=== PATIENT | male | born 1975 | race American Indian/Alaskan Native ===

== ENCOUNTER 2016-09-08 17:37 | Emergency (ER) | payer OTHER ==
--- NOTE | 2016-09-08 18:06 | C.PDOC ---
History Of Present Illness 40 y/o male presents to ED with c/o upper respiratory congestion and sore throat that started last week. Patient saw Dr. Holland 2 days ago and had a fever of 101.7. Patient reports he then developed discomfort in left chest and back. Denies abdominal pain, vomiting, diarrhea, cough, or shortness of breath. Patient has been taking Zithromax for 3 days, as prescribed by Dr. Holland, and reports he has since been feeling worse with more pain and higher fever. Time Seen by Provider: 09/08/16 17:57 Chief Complaint (Nursing): Fever History Per: Patient History/Exam Limitations: no limitations Onset/Duration Of Symptoms: Days Current Symptoms Are (Timing): Still Present Sick Contacts (Context): None Associated Symptoms: Fever, Sore Throat, Nasal Congestion. denies: Chills, Cough, Vomiting Ear Symptoms: Bilateral: None Recent travel outside of the [place]: No Past Medical History Reviewed: Historical Data, Nursing Documentation, Vital Signs Vital Signs: Last Vital Signs Temp 103 F H 09/08/16 18:16 Pulse 116 H 09/08/16 17:46 Resp 20 09/08/16 17:46 BP 125/67 09/08/16 17:46 Pulse Ox 97 09/08/16 18:06 - Medical History PMH: No Chronic Diseases Family History: States: Unknown Family Hx - Social History Hx Alcohol Use: Yes Hx Substance Use: No - Immunization History Hx Tetanus Toxoid Vaccination: No Hx Influenza Vaccination: Yes (2016) Hx Pneumococcal Vaccination: No Review Of Systems Except As Marked, All Systems Reviewed And Found Negative. Constitutional: Positive for: Fever ENT: Positive for: Throat Pain. Negative for: Ear Pain Cardiovascular: Negative for: Palpitations Respiratory: Negative for: Cough, Shortness of Breath, Wheezing Gastrointestinal: Negative for: Nausea, Vomiting, Abdominal Pain Skin: Negative for: Rash Neurological: Negative for: Headache, Dizziness Physical Exam - Physical Exam Appears: Non-toxic, No Acute Distress Skin: Normal Color, Warm, Dry Head: Atraumatic, Normacephalic Eye(s): bilateral: Normal Inspection, PERRL, EOMI Ear(s): Bilateral: Normal Nose: Normal Oral Mucosa: Moist Throat: Normal, No Erythema, No Exudate Neck: Normal ROM, Supple Chest: Symmetrical Cardiovascular: Rhythm Regular Respiratory: Normal Breath Sounds, No Rales, No Rhonchi, No Wheezing Gastrointestinal/Abdominal: Soft, No Tenderness, No Guarding, No Rebound Back: Normal Inspection Extremity: Normal ROM, Capillary Refill (< 2 sec.) Extremity: Bilateral: Normal Color And Temperature Neurological/Psych: Oriented x3, Normal Speech, Normal Cognition ED Course And Treatment - Laboratory Results Result Diagrams: 09/08/16 18:22 09/08/16 18:22 Lab Interpretation: Abnormal (Elevated BUN 24, Elevated LFTs with AST 160, ALT 96, Bili 1.5, Alk Phos 162, D-dimer slightly elevated 376) O2 Sat by Pulse Oximetry: 97 (RA) Pulse Ox Interpretation: Normal - Radiology CXR: Interpreted by Me CXR Interpretation: Yes: Infiltrates (RLL) Progress Note: Treated with Tylenol. CxR, labs ordered and reviewed. - Physician Consult Information Time Consulting Physician Contacted: 19:15 Physician Contacted: Stoney Holland Outcome Of Conversation: He knows the patient well. He has already called a prescription for Augmentin 875mg BID to the pharmacy for patient. Rocephin 1gm given in ED. He remains comfortable and is in no distress. He can follow up with Dr Holland in the office. Disposition Counseled Patient/Family Regarding: Studies Performed, Diagnosis, Need For Followup - Disposition Referrals: Stoney Holland MD [Staff Provider] - Disposition: HOME/ ROUTINE Disposition Time: 20:05 Condition: STABLE Additional Instructions: Follow up with Dr Holland in the office. He has called a prescription for Augmentin 875mg in to your pharmacy. Take it twice a day. Complete the Zithromax as prescribed. Instructions: Bacterial Pneumonia (ED) - Clinical Impression Clinical Impression: Pneumonia - Scribe Statement The provider has reviewed the documentation as recorded by the Patrick Miranda Provider Attestation: All medical record entries made by the Patrick were at my direction and personally dictated by me. I have reviewed the chart and agree that the record accurately reflects my personal performance of the history, physical exam, medical decision making, and the department course for this patient. I have also personally directed, reviewed, and agree with the discharge instructions and disposition.
[2016-09-08 18:25] LABS: BASO # 0.1 K/uL (0.0-0.2); BASO % 0.6 % (0.0-2.0); HEMOGLOBIN 13.1 g/dL (12.0-18.0); LYMPH # 1.3 K/uL (1.0-4.3); LYMPH % 12.8 % (20.0-40.0); MEAN CELL VOLUME 95.1 fL (80.0-94.0); MEAN CORPUSCULAR HEMOGLOBIN 32.3 pg (27.0-31.0); MEAN CORPUSCULAR HGB CONC 33.9 g/dL (33.0-37.0); MEAN PLATELET VOLUME 9.1 fL (7.2-11.7); MONO # 0.9 K/uL (0.0-0.8); MONO % 9.1 % (0.0-10.0); NEUT # 7.8 K/uL (1.8-7.0); NEUT % 77.5 % (50.0-75.0); RBC 4.05 Mil/uL (4.40-5.90); WHITE BLOOD COUNT 10.1 K/uL (4.8-10.8)
[2016-09-08] MEDS ORDERED: cefTRIAXone IV 1 gm in Dextros 50 ML IVPB ONE ×2 (18:27→18:31)
[2016-09-08 18:34] LABS: ALBUMIN 4.7 g/dL (3.5-5.0)
[2016-09-08 18:37] LABS: ALT/SGPT 96 U/L (21-72); AST/SGOT 160 U/L (17-59); BLOOD UREA NITROGEN 24 mg/dL (9-20); GFR AFRICAN-AMERICAN > 60; GFR NON-AFRICAN AMERICAN 52
[2016-09-08 18:38] LABS: CALCIUM 9.5 mg/dl (8.6-10.4); URINE BILIRUBIN NEGATIVE (NEGATIVE); URINE BLOOD NEGATIVE (NEGATIVE); URINE CLARITY Clear (Clear); URINE COLOR Yellow (YELLOW); URINE GLUCOSE (UA) NORMAL (Normal); URINE LEUKOCYTE ESTERASE NEG Leu/uL (Negative); URINE NITRATE NEGATIVE (NEGATIVE); URINE PROTEIN 1+ mg/dL (NEGATIVE)
--- NOTE | 2016-09-08 18:47 | RAD ---
HISTORY: SOB COMPARISON: None available. TECHNIQUE: Chest PA and lateral FINDINGS: LUNGS: Rounded opacity at the right lung base of unclear significance ; focal pneumonia is suspected however underlying malignant neoplasm cannot be excluded. Please note that chest x-ray has limited sensitivity for the detection of pulmonary masses. PLEURA: No significant pleural effusion identified. No definite pneumothorax . CARDIOVASCULAR: The cardiomediastinal silhouette appears within normal limits of size. OSSEOUS STRUCTURES: No acute osseous abnormality identified. VISUALIZED UPPER ABDOMEN: Unremarkable. OTHER FINDINGS: None. IMPRESSION: Rounded opacity at the right lung base of unclear significance ; focal pneumonia is suspected however underlying malignant neoplasm cannot be excluded. Correlate clinically and follow-up to complete resolution. CT of the chest may be considered if indicated.
[2016-09-08 20:08] VITALS: BP 106/66; PULSE 87; RESP 18; TEMP 99.9
[2016-09-08 20:09] VITALS: O2SAT 97
== END 2016-09-08 20:12 | disposition home or self-care (01) ==
LOC: C.ER 17:37 → C.3T 18:35 → UNDOADMOB 18:35 → C.ER 20:12
DX: J18.9 Pneumonia, unspecified organism (principal)
CPT/HCPCS: 71020; 80053; 81001; 85025; 85378; 87040; 96374; 99285; J0696